=== PATIENT | female | born 1980 | race Two or more races ===

== ENCOUNTER 2022-01-31 19:56 | Emergency (ER) | payer SELFPAY ==
[~2022-01-31] VITALS: Ht 152.4 cm; Wt 45.4 kg
[2022-01-31 19:57] VITALS: BP 148/91
[2022-01-31] MEDS ORDERED: KETOROLAC TROMETH 30 MG/ML 1ML VIAL IV ONE (21:15)
[2022-01-31] MEDS ORDERED: PROMETHAZINE HCL 25 MG/ML 1ML IM ONE (21:15)
[2022-01-31] MEDS ORDERED: KETOROLAC TROMETH 60MG/2ML VIAL IM ONE (21:30)
== END 2022-01-31 21:28 | disposition home or self-care (01) ==
LOC: ER 19:56
DX: R51.9 Headache, unspecified (principal); I10 Essential (primary) hypertension
CPT/HCPCS: 96372; 96374; 99284; J1885; J2550